=== PATIENT | male | born 1955 | race Caucasian/White ===

== ENCOUNTER → 2018-03-11 | Outpatient (CLI) | payer OTHER ==
[~2018-03-11] MED LIST: ALLO-119 PO; ASPI-1471 PO; ATOR20TA65 PO; BLOO-1777 MC; CALC1TAB32 PO; COLC0.6C3; DIPH0.5D12 IM; DULA0.75 SC; LISI-374 PO; PIOG30TA71 PO; PNEI IM; SITA1TAB17 PO
--- NOTE | 2018-03-11 15:55 | RADIOLOGY IMAGING REPORT ---
FACILITY: [facility] [place] PATIENT NAME: Scott David : 1955 MR: [id number] V: [id number] EXAM DATE: ORDERING PHYSICIAN: CJ HINES TECHNOLOGIST: Location: [facility] Patient: Scott David : 1955 Visit/Account:[id number] Date of Sevice: 03/11/2018 KIDNEYS EXAMINATION: Renal ultrasound. History: Exam type: KIDNEYS History: Chronic kidney disease stage III, right flank pain COMPARISON STUDIES: FINDINGS: Kidneys: Right kidney- 6.5 x 3.8 x 4.2 cm Left kidney- 12.5 x 6.3 x 5.1 cm Uniform and symmetric blood flow in each kidney by Doppler ultrasound. Hydronephrosis: none Resistive index on the right 0.72 and on the left 0.65 Bladder: Prevoid volume 227 mL. Post void residual 109 mL. Bilateral ureteral jets are present. Abdominal aorta and IVC: Aorta and IVC are patent by Doppler ultrasound. IMPRESSION: Atrophic appearing right kidney Post void bladder residual 109 mL Report Dictated By: Oxana Aviles MD at 03/11/2018 3:47 PM Report E-Signed By: Oxana Aviles MD at 03/11/2018 3:49 PM WSN:[email or web address]
== END ==
LOC: US 00:39
PROVIDERS: ATTEND Emergency Medicine
DX: N18.3 Chronic kidney disease, stage 3 (moderate) (principal)
CPT/HCPCS: 76705